=== PATIENT | female | born 1970 | race Caucasian/White ===

== ENCOUNTER → 2018-07-02 | Outpatient (CLI) | payer BC ==
[2018-07-02 20:17] LABS: BASO % 0.4 % (0.0-1.0); EOS # 0.3 10^3/uL (0.0-0.50); EOS % 2.8 % (0.0-3.0); HEMATOCRIT 40.3 % (36.0-47.0); HEMOGLOBIN 12.5 g/dl (12.0-15.5); IMMATURE GRANULOCYTE % 0.3 % (0-3.0); LYMPH % 32.7 % (24.0-44.0); MEAN CORPUSCULAR HEMOGLOBIN 27.2 pg (27.0-33.0); MEAN CORPUSCULAR VOLUME 87.6 fl (80.0-96.0); MONO # 0.7 10^3/uL (0.0-0.8); MONO % 7.7 % (0.0-5.0); NEUTROPHILS # 5.1 10^3/uL (1.8-7.7); NEUTROPHILS % 56.1 % (36.0-66.0); PLATELET COUNT, AUTOMATED 299 10^3/uL (150-450); RED CELL DISTRIBUTION WIDTH 16.7 % (11.5-14.5); WHITE BLOOD COUNT 9.1 10^3/uL (4.0-10.0)
[2018-07-02 20:37] LABS: ALBUMIN 3.5 GM/DL (3.2-5.2); ALBUMIN/GLOBULIN RATIO 0.95 (1.00-1.93); ALKALINE PHOSPHATASE 119 U/L (45-117); ALT/SGPT 18 U/L (12-78); ANION GAP 9 MEQ/L (8-16); AST/SGOT 14 U/L (7-37); BILIRUBIN,TOTAL < 0.1 MG/DL (0.2-1.0); BLOOD UREA NITROGEN 12 MG/DL (7-18); C REACTIVE PROTEIN QUANTITATIV 0.36 MG/DL (0.00-0.30); CALCIUM LEVEL 8.9 MG/DL (8.5-10.1); CARBON DIOXIDE LEVEL 26 MEQ/L (21-32); CHLORIDE LEVEL 105 MEQ/L (98-107); CREATININE FOR GFR 0.76 MG/DL (0.55-1.30); FREE T4 0.83 NG/DL (0.76-1.46); GLOMERULAR FILTRATION RATE > 60.0 (>58); GLUCOSE, FASTING 84 MG/DL (70-100); POTASSIUM SERUM 4.5 MEQ/L (3.5-5.1); SODIUM LEVEL 140 MEQ/L (136-145); TOTAL PROTEIN 7.2 GM/DL (6.4-8.2)
== END ==
LOC: M WUC 15:54
DX: S16.1XXA Strain of muscle, fascia and tendon at neck level, initial encounter (principal); Y92.89 Other specified places as the place of occurrence of the external cause; Y93.89 Activity, other specified; X58.XXXA Exposure to other specified factors, initial encounter; Y99.8 Other external cause status
CPT/HCPCS: 84443